=== PATIENT | female | born 1990 | race Two or more races ===

== ENCOUNTER 2016-10-28 05:47 | Emergency (ER) | payer MEDICAID ==
[~2016-10-28] VITALS: Ht 154.9 cm; Wt 70.3 kg
[2016-10-28 05:54] VITALS: BP 147/75
== END 2016-10-28 06:49 | disposition home or self-care (01) ==
LOC: ER 05:51
DX: J02.9 Acute pharyngitis, unspecified (principal); F17.210 Nicotine dependence, cigarettes, uncomplicated; Z90.49 Acquired absence of other specified parts of digestive tract

== ENCOUNTER 2017-08-11 08:39 | Emergency (ER) | payer BC, MEDICAID ==
[~2017-08-11] VITALS: Ht 154.9 cm; Wt 77.1 kg
[2017-08-11 08:45] VITALS: BP 143/88
== END 2017-08-11 09:47 | disposition home or self-care (01) ==
LOC: ER 08:39
DX: H60.93 Unspecified otitis externa, bilateral (principal); J02.9 Acute pharyngitis, unspecified; F17.210 Nicotine dependence, cigarettes, uncomplicated; Z90.49 Acquired absence of other specified parts of digestive tract

== ENCOUNTER 2022-10-07 17:20 | Emergency (ER) | payer BC, MEDICAID ==
[~2022-10-07] VITALS: Ht 154.9 cm; Wt 91.6 kg
[2022-10-07 17:48] LABS: Basophils # (auto) 0.1 10 ^3/uL (0-0.2); Basophils % (auto) 0.5 % (0.0-2.0); Eosinophils # (auto) 0.1 10 ^3/uL (0-0.8); Eosinophils % (auto) 0.8 % (0.0-7.0); Lymphocytes # (auto) 2.9 10 ^3/uL (0.4-5.4); Lymphocytes % (auto) 23.6 % (10.0-50.0); Mean Corpuscular Hemoglobin 28.3 pg (28.0-32.0); Mean Corpuscular Hgb Conc. 33.4 g/dL (32.0-36.0); Mean Corpuscular Volume 84.9 fL (80.0-100.0); Monocytes # (auto) 1.1 10 ^3/uL (0-1.3); Monocytes % (auto) 8.9 % (0.0-12.0); Neutrophils # (auto) 8.2 10 ^3/uL (1.6-8.6); Neutrophils % (auto) 66.2 % (37.0-80.0); Nucleated Red Blood Cells % 0.1 %; Red Blood Cells 5.66 10^6/uL (4.0-5.20); Red Cell Distribution Width 13.9 % (11.8-14.3); White Blood Cell 12.5 10^3/uL (4.4-10.8)
[2022-10-07 18:11] LABS: Albumin 4.1 g/dL (3.4-5.0); Calcium 9.6 mg/dL (8.5-10.1); Potassium 3.2 mmol/L (3.5-5.1)
[2022-10-07 18:16] LABS: BUN/Creatinine Ratio 17.5 (10.0-20.0); Bilirubin, Total 0.6 mg/dL (0.2-1.0); Total Protein 9.8 g/dL (6.4-8.2)
[2022-10-07 18:57] LABS: Urine Bacteria NONE SEEN /hpf (None Seen); Urine Blood 3+ /uL (Negative); Urine Hyaline Cast FEW /lpf (0 - 2); Urine Mucus FEW (None Seen); Urine WBC 13 /hpf (0 - 5)
[2022-10-07] MEDS ORDERED: MET250PM PO (21:30)
[2022-10-07 21:56] VITALS: BP 122/78
== END 2022-10-07 21:58 | disposition home or self-care (01) ==
LOC: ER 17:20
DX: R10.84 Generalized abdominal pain (principal); R19.7 Diarrhea, unspecified; Z90.49 Acquired absence of other specified parts of digestive tract
CPT/HCPCS: 36415; 74176; 80053; 81001; 83690; 85025

== ENCOUNTER 2022-11-10 11:25 | Emergency (ER) | payer MEDICAID ==
[~2022-11-10] VITALS: Ht 154.9 cm; Wt 90.9 kg
[~2022-11-10 11:25] MED LIST: MET250PM PO
[2022-11-10 12:39] VITALS: BP 120/83; PULSE 95; RESP 16; TEMP 98; O2SAT 98
== END 2022-11-10 13:10 | disposition home or self-care (01) ==
LOC: ER 11:25 → EEVIPCON 11:25 → ER 13:10
DX: J02.0 Streptococcal pharyngitis (principal)